=== PATIENT | male | born 1995 | race Caucasian/White ===

== ENCOUNTER → 2019-06-16 11:37 | Outpatient (BNVA) | payer BC, OTHER, SELFPAY | PROVIDERS: Family Provider Family Medicine; PCP Family Medicine; Visit Provider Urology | DX: N99.89 Other postprocedural complications and disorders of genitourinary system (principal); C67.9 Malignant neoplasm of bladder, unspecified | CPT/HCPCS: 81001 ==

== ENCOUNTER → 2019-07-28 08:08 | Outpatient (BNVA) | payer BC, OTHER, SELFPAY | PROVIDERS: Family Provider Family Medicine; PCP Family Medicine; Visit Provider Urology | DX: C67.9 Malignant neoplasm of bladder, unspecified (principal) | CPT/HCPCS: 81001 ==

== ENCOUNTER → 2019-11-10 11:31 | Outpatient (BNVA) | payer BC, OTHER, SELFPAY | PROVIDERS: Family Provider Family Medicine; PCP Family Medicine; Visit Provider Urology | DX: C67.9 Malignant neoplasm of bladder, unspecified (principal) | CPT/HCPCS: 81001 ==

== ENCOUNTER → 2019-11-17 11:19 | Outpatient (BNVA) | payer BC, OTHER, SELFPAY | PROVIDERS: Family Provider Family Medicine; PCP Family Medicine; Visit Provider Urology | DX: C67.9 Malignant neoplasm of bladder, unspecified (principal) | CPT/HCPCS: 81001 ==

== ENCOUNTER → 2020-04-03 12:53 | Outpatient (BNVA) | payer BC, SELFPAY | PROVIDERS: Family Provider Family Medicine; PCP Family Medicine; Referring Provider Family Medicine; Visit Provider Internal Medicine | DX: E10.9 Type 1 diabetes mellitus without complications (principal); E78.2 Mixed hyperlipidemia | CPT/HCPCS: 99203 ==

== ENCOUNTER → 2020-05-17 11:44 | Outpatient (BNVA) | payer BC, SELFPAY | PROVIDERS: Family Provider Family Medicine; PCP Family Medicine; Visit Provider Urology | DX: C67.9 Malignant neoplasm of bladder, unspecified (principal) | CPT/HCPCS: 81003 ==

== ENCOUNTER → 2020-05-24 07:16 | Outpatient (BNVA) | payer BC, OTHER, SELFPAY | PROVIDERS: Family Provider Family Medicine; PCP Family Medicine; Visit Provider Urology | DX: C67.9 Malignant neoplasm of bladder, unspecified (principal) | CPT/HCPCS: 81003 ==

== ENCOUNTER → 2020-05-31 11:00 | Outpatient (BNVA) | payer BC, SELFPAY | PROVIDERS: Family Provider Family Medicine; PCP Family Medicine; Visit Provider Urology | DX: C67.9 Malignant neoplasm of bladder, unspecified (principal) | CPT/HCPCS: 81003 ==

== ENCOUNTER → 2020-07-01 08:06 | Outpatient (BNVA) | payer BC, SELFPAY | PROVIDERS: Family Provider Family Medicine; PCP Family Medicine; Visit Provider Internal Medicine | DX: E10.9 Type 1 diabetes mellitus without complications (principal); E16.0 Drug-induced hypoglycemia without coma; T38.3X5A Adverse effect of insulin and oral hypoglycemic [antidiabetic] drugs, initial encounter; E78.2 Mixed hyperlipidemia | CPT/HCPCS: 99215 ==

== ENCOUNTER → 2020-07-17 10:40 | Outpatient (BNVA) | payer BC, SELFPAY | PROVIDERS: Family Provider Family Medicine; PCP Family Medicine; Visit Provider Urology | DX: C67.9 Malignant neoplasm of bladder, unspecified (principal) | CPT/HCPCS: 81003 ==

== ENCOUNTER → 2020-08-30 11:37 | Outpatient (BNVA) | payer BC, SELFPAY | PROVIDERS: Family Provider Family Medicine; PCP Family Medicine; Visit Provider Urology | DX: C67.9 Malignant neoplasm of bladder, unspecified (principal) | CPT/HCPCS: 81003 ==

== ENCOUNTER → 2020-09-13 10:23 | Outpatient (BNVA) | payer BC, SELFPAY | PROVIDERS: Family Provider Family Medicine; PCP Family Medicine; Visit Provider Urology | DX: C67.9 Malignant neoplasm of bladder, unspecified (principal) | CPT/HCPCS: 81003 ==

== ENCOUNTER → 2020-09-20 11:12 | Outpatient (BNVA) | payer BC, SELFPAY | PROVIDERS: Family Provider Family Medicine; PCP Family Medicine; Visit Provider Urology | DX: C67.9 Malignant neoplasm of bladder, unspecified (principal) | CPT/HCPCS: 81003 ==

== ENCOUNTER 2020-09-24 14:26 | Outpatient (CLI) | payer BC, SELFPAY ==
[2020-09-24 14:55] LABS: Basophils % 0.3 %; Eosinophils # 0.2 10^3/uL (0.0-0.8); Eosinophils % 2.9 %; Hematocrit 47.3 % (42.0-52.0); Hemoglobin 15.6 g/dL (11.7-16.6); Lymphocytes # 1.7 10^3/uL (0.8-4.8); Mean Corpuscular Hemoglobin 30.5 pg (28.0-34.0); Mean Corpuscular Volume 92.6 fL (80-94); Mean Platelet Volume 10.7 fL (7.4-10.4); Monocytes # 0.7 10^3/uL (0.2-0.9); Monocytes % 11.4 %; Neutrophils # 3.49 10^3/uL (1.8-7.7); Neutrophils % 56.9 %; Nucleated Red Blood Cells % 0 %; Platelet Count 231 10^3/cmm (130-400); Red Blood Count 5.11 10^6/uL (4.1-5.3); Red Cell Distribution Width 12.3 % (12.1-15.1); White Blood Count 6.1 10^3/uL (4.0-10.0)
[2020-09-24 15:17] LABS: Alanine Aminotransferase 17 U/L (0-41); Albumin Level 4.4 g/dL (3.5-5.2); Alkaline Phosphatase 61 IU/L (40-130); Anion Gap 12.6 (5-19); Aspartate Amino Transferase 15 U/L (0-40); Blood Urea Nitrogen 9 mg/dL (6-20); Calcium 9.1 mg/dL (8.5-10.5); Carbon Dioxide 29 mmol/L (22-29); Chloride 99 mmol/L (98-107); Globulin 2.5 g/dL (1.3-4.6); Glomerular Filtration Rate 61.3 mL/min (90-130); Glucose 208 mg/dL (65-115); Osmolality Calculated 287 mOsm/kg (285-295); Potassium 4.6 mmol/L (3.5-5.1); Sodium 136 mmol/L (136-145); Total Bilirubin 0.8 mg/dL (0.15-1.2); Total Protein 6.9 g/dL (6.6-8.7)
== END 2020-09-24 14:27 | disposition home or self-care (01) ==
PROVIDERS: PCP Family Medicine; Visit Provider Urology
DX: C67.9 Malignant neoplasm of bladder, unspecified (principal)
CPT/HCPCS: 36415; 80053; 81003; 85025

== ENCOUNTER → 2020-09-25 07:34 | Outpatient (BNVA) | payer BC, SELFPAY | PROVIDERS: PCP Family Medicine; Visit Provider Urology | DX: C67.9 Malignant neoplasm of bladder, unspecified (principal); N30.80 Other cystitis without hematuria; T50.A95A Adverse effect of other bacterial vaccines, initial encounter | CPT/HCPCS: 81003 ==

== ENCOUNTER → 2020-09-30 13:14 | Outpatient (BNVA) | payer BC, MEDICAID, SELFPAY | PROVIDERS: PCP Family Medicine; Visit Provider Nurse Practitioner Family | DX: N39.9 Disorder of urinary system, unspecified (principal); N30.80 Other cystitis without hematuria; T50.A95A Adverse effect of other bacterial vaccines, initial encounter | CPT/HCPCS: 80053; 81003; 85025; 87086 ==

== ENCOUNTER → 2020-10-02 14:26 | Outpatient (BNVA) | payer BC, SELFPAY | PROVIDERS: PCP Family Medicine; Visit Provider Urology | DX: N30.80 Other cystitis without hematuria (principal) | CPT/HCPCS: 81003 ==

== ENCOUNTER → 2021-01-02 10:14 | Outpatient (BNVA) | payer BC, SELFPAY | PROVIDERS: PCP Family Medicine; Visit Provider Urology | DX: C67.9 Malignant neoplasm of bladder, unspecified (principal) | CPT/HCPCS: 81003 ==

== ENCOUNTER → 2021-07-07 15:23 | Outpatient (BNVA) | payer BC, OTHER, SELFPAY | PROVIDERS: PCP Family Medicine; Visit Provider Urology | DX: C67.9 Malignant neoplasm of bladder, unspecified (principal); E10.9 Type 1 diabetes mellitus without complications | CPT/HCPCS: 81003 ==

== ENCOUNTER → 2022-03-12 08:47 | Outpatient (BNVA) | payer OTHER, SELFPAY | PROVIDERS: PCP Family Medicine; Visit Provider Family Medicine | DX: E10.9 Type 1 diabetes mellitus without complications (principal); E78.5 Hyperlipidemia, unspecified; E16.0 Drug-induced hypoglycemia without coma; T38.3X5A Adverse effect of insulin and oral hypoglycemic [antidiabetic] drugs, initial encounter | CPT/HCPCS: 82043; 83036 ==

== ENCOUNTER 2022-05-04 09:32 | Emergency (ER) | payer OTHER, SELFPAY ==
[2022-05-04 09:39] VITALS: BP 131/89; PULSE 103; TEMP 36.6; O2SAT 98; BMI 23.7
--- NOTE | 2022-05-04 09:52 | ECG_ITS ---
[facility] Test Date: 2022-05-04 Pat Name: Angel Rinaldi Department: Room: Gender: Male In Flight Technician: : 1995 Requested By: Ted Garcia Order Number: [id number] Kelsea MD: Nghia Edward M.D. Measurements Intervals [place] Rate: 81 P: 83 NC: 155 QRS: 68 QRSD: 94 T: 71 QT: 350 QTc: 407 Interpretive Statements SINUS RHYTHM POSSIBLE RIGHT ATRIAL ENLARGEMENT [0.25mV P-WAVE] No previous ECG available for comparison Electronically Signed On 05-04-2022 17:07:51 AUDITOR INTERNAL by Nghia Edward M.D. [id number]
[2022-05-04] MEDS: promethazine 25 mg/mL SDV 1 mL IM (10:08)
[2022-05-04] MEDS: insulin regular-human 100 units/1 mL 10 UNIT IVP ×2 (10:09→13:46)
--- NOTE | 2022-05-04 10:09 | ED_ITS ---
HPI - Nausea/Vomiting/Diarrhea General: Chief complaint: Nausea/Vomiting/Diarrhea Stated complaint: high bloodsugar/n/v Time Seen by Provider: 05/04/22 09:46 Source: patient Mode of arrival: ambulatory History of Present Illness: 27-year-old male presents emergency room with nausea vomiting. Mr. Rinaldi is a known insulin-dependent diabetic he usually uses an insulin pump. His battery on his insulin pump went down overnight when he woke up this morning he was nauseous began vomiting he tested for ketones and it read high blood sugar in excess of 430. He usually has excellent control of his blood sugars and rarely is in the hospital for these issues. He recognized that he would not be able to manage this at home and came to the emergency room on arrival here he is awake and alert able to give an excellent history. He is still quite nauseous. He has had a little diarrhea recently but he has not had any fever sweats chills or upper respiratory-like symptoms. MD elicited complaint: nausea and vomiting Onset (ago): hour(s) Description of vomiting: watery and bilious Associated nausea: Yes Associated abdominal pain: No Location of pain: None Quality: cramping Exacerbating factors: none Relieving factors: none Context: other (Insulin pump malfunction) Associated symtoms: Reports anorexia, malaise, myalgias, nausea and weakness; Denies altered mental status, anxiety, bloating, change in vision, chest pain, cough, diaphoresis, decreased urine output, dizziness, dysuria, epistaxis, fatigue, fecal incontinence, fevers/chills, headache(s), numbness, palpitations, rash, short of breath, syncope, tenesmus or tinnitus Review of Systems Const: Reports: malaise; Denies: fever(s), chills, fatigue or diaphoresis Eyes: Denies: change in vision ENMT: Denies: tinnitus or epistaxis Card: Denies: chest pain, palpitations or syncope Resp: Denies: dyspnea, productive cough or non-productive cough GI: Reports: nausea; Denies: bloating or fecal incontinence : Denies: dysuria Skin/Breast: Denies: rash or pruritus Neuro: Denies: headache(s) or dizziness Psych: Denies: anxiety PFSH ED PFSH: Medical History History of epilepsy History of sarcoidosis Malignant neoplasm of bladder, unspecified Type 1 diabetes Surgical History H/O vasectomy S/P adenoidectomy S/P bladder tumor excision with fulguration S/P hernia repair S/P tonsillectomy Family History Mother Thyroid condition Social History Smoking and tobacco status: former smoker Alcohol intake: current Alcohol intake frequency: few times a month Adopted: No Caregiver/support person: No Lives independently: No Household members: spouse Marital status: Number of children: 3 Current occupational status: employed History of recent travel: No Physical Exam Const: COMMON NORMALS: no acute distress EXAM LIMITATIONS: no altered mental status GENERAL APPEARANCE: cooperative and comfortable ORIENTATION/CONSCIOUSNESS: Yes awake, Yes oriented to person, Yes oriented to place and Yes oriented to time HENMT: COMMON NORMALS: normocephalic, atraumatic and hearing grossly normal bilaterally HEAD & SCALP: normocephalic and atraumatic Resp: COMMON NORMALS: normal respiratory effort, No retractions, No use of accessory muscles and clear to auscultation bilaterally AUSCULTATION: clear to auscultation bilaterally Cardio: COMMON NORMALS: regular rate, regular rhythm and No murmurs present (Cardio) RATE: regular rate RHYTHM: regular rhythm GI: COMMON NORMALS: Soft to palpation and No hepatosplenomegaly present AUSCULTATION: Yes normoactive bowel sounds PALPATION: Yes Soft to palpation, No Tenderness to palpation present (GI), No Guarding due to palpation present (GI) and Yes No hepatosplenomegaly present Extremity: COMMON NORMALS: normal to inspection, capillary refill normal, no clubbing, cyanosis or edema, no calf tenderness and no pedal edema Neuro: SENSORIUM/ORIENTATION: Yes oriented to person, Yes oriented to place and Yes oriented to time Skin: COMMON NORMALS: no rashes or lesions noted GENERAL SKIN EXAM: no mirtha hes or lesions noted Course Vital Signs: Vital signs: Vital Signs Temperature 97.9 F 05/04/22 09:39 Pulse Rate 69 05/04/22 13:15 Respiratory Rate 18 05/04/22 13:15 Blood Pressure 114/54 05/04/22 13:15 Pulse Oximetry 96 05/04/22 13:15 Oxygen Delivery Me thod 05/04/22 13:15 MDM - Nausea/Vomiting/Diarrhea Medical Decision Making Patient initially presented with a insulin pump failure leading to severe hyperglycemia mild DKA. He is awake and alert he is not having a significant amount of vomiting in the emergency room. He was given fluid and insulin once his insulin had begun to improve his insulin pump was restarted we were able to document resolution of his ketones as well as closure of his anion gap he is feeling much better he demonstrated the ability to eat and drink we will go ahead and discharge the patient home. Patient had little to no change in his potassium on the repeat BMP so did not require any potassium supplementation. Given this was an identifiable equipment error I would expect fully expect he would be able to manage his blood sugars in the same level that he was previously without any difficulty after discharge patient felt same and wished to go home. Medical Records I reviewed the patient's medical records. Lab Data I reviewed the patient's lab results. 05/04/22 10:03 05/04/22 10:03 Laboratory Results WBC 8.3 10^3/uL (4.0-10.0) 05/04/22 10:03 RBC 5.77 10^6/uL (4.1-5.3) H 05/04/22 10:03 Hgb 18.2 g/dL (11.7-16.6) H 05/04/22 10:03 Hct 53.2 % (42.0-52.0) H 05/04/22 10:03 MCV 92.2 fl (80-94) 05/04/22 10:03 MCH 31.5 pg (28.0-34.0) 05/04/22 10:03 MCHC 34.2 g/dL (30.0-36.0) 05/04/22 10:03 RDW 11.7 % (12.1-15.1) L 05/04/22 10:03 Plt Count 220 10^3/cmm (130-400) 05/04/22 10:03 MPV 10.8 fL (7.4-10.4) H 05/04/22 10:03 Neut % (Auto) 84.9 % 05/04/22 10:03 Lymph % (Auto) 9.4 % 05/04/22 10:03 [place] % (Auto) 4.3 % 05/04/22 10:03 Eos % (Auto) 0.4 % 05/04/22 10:03 Baso % (Auto) 0.4 % 05/04/22 10:03 Neut # (Auto) 7.05 10^3/uL (1.8-7.7) 05/04/22 10:03 Lymph # (Auto) 0.8 10^3/uL (0.8-4.8) 05/04/22 10:03 [place] # (Auto) 0.4 10^3/uL (0.2-0.9) 05/04/22 10:03 Eos # (Auto) 0.0 10^3/uL (0.0-0.8) 05/04/22 10:03 Baso # (Auto) 0.0 10^3/uL (0.0-0.1) 05/04/22 10:03 Nucleated RBC % (auto) 0 % 05/04/22 10:03 Nucleated RBCs # 0.0 /100WBC 05/04/22 10:03 Specimen Type Arterial 05/04/22 10:45 Sample Site Brachial, left 05/04/22 10:45 ABG pH 7.30 (7.35-7.45) L 05/04/22 10:45 ABG pCO2 36.8 mmHg (35-45) 05/04/22 10:45 ABG pO2 98.8 mmHg (80.0-100.0) 05/04/22 10:45 ABG HCO3 18.1 mmol/L (22-26) L 05/04/22 10:45 ABG O2 Saturation 98.2 05/04/22 10:45 ABG Base Excess -7.5 mmol/L (-2.0-2.0) L 05/04/22 10:45 Petros Test Pos 05/04/22 10:45 A-a O2 Gradient 0.8 mmHg (5-10) L 05/04/22 10:45 Hematocrit 50.5 % (42-52) 05/04/22 10:45 Hgb O2 Saturation 95.8 % (95-100) 05/04/22 10:45 Carboxyhemoglobin 1.5 %THgb (0.4-20.1) 05/04/22 10:45 Methemoglobin 0.9 % (0.4-1.5) 05/04/22 10:45 Total Hemoglobin 16.5 g/dL (14-18) 05/04/22 10:45 Sodium 139.0 mmol/L (131-143) 05/04/22 10:45 Potassium 3.5 mmol/L (3.5-5.0) 05/04/22 10:45 Glucose 247.0 mg/dL (70-115) H 05/04/22 10:45 Ionized Calcium 1.3 mmol/L (1.1-1.4) 05/04/22 10:45 O2 Delivery Device Room air 05/04/22 10:45 FiO2 21.0 % 05/04/22 10:45 System Configuration Specialist ID Cak 05/04/22 10:45 Sodium 142 mmol/L (136-145) 05/04/22 12:26 Potassium 4.3 mmol/L (3.5-5.1) 05/04/22 12:26 Chloride 106 mmol/L (98-107) 05/04/22 12:26 Carbon Dioxide 20 mmol/L (22-29) L 05/04/22 12:26 Anion Gap 20.3 (5-19) H 05/04/22 12:26 BUN 21 mg/dL (6-20) H 05/04/22 12:26 Creatinine 0.9 mg/dL (0.7-1.2) 05/04/22 12:26 GFR Calculation 100.5 mL/min (90-130) 05/04/22 12:26 Glucose 179 mg/dL (65-115) H 05/04/22 12:26 POC Glucose 122 mg/dL (70-110) H 05/04/22 15:13 Calculated Osmolality 301 mOsm/kg (285-295) H 05/04/22 12:26 Calcium 8.3 mg/dL (8.5-10.5) L 05/04/22 12:26 Total Bilirubin 1.1 mg/dL (0.15-1.2) 05/04/22 10:03 AST 45 U/L (0-40) H 05/04/22 10:03 ALT 39 U/L (0-41) 05/04/22 10:03 Alkaline Phosphatase 114 U/L (40-130) 05/04/22 10:03 Total Protein 8.0 g/dL (6.6-8.7) 05/04/22 10:03 Albumin 4.4 g/dL (3.5-5.2) 05/04/22 10:03 Globulin 3.6 g/dL (1.3-4.6) 05/04/22 10:03 Serum Ketones Negative (Negative) 05/04/22 14:11 Discharge Plan Discharge Patient Disposition: Home Clinical Impression: Acute hyperglycemia, Type 1 diabetes Condition: Stable Prescriptions: No Action BCG live 50 mg suspension for reconstitution 50 mg intravesical ONCE Qty: 0.5 0RF BCG vaccine, live (PF) 50 mg suspension for reconstitution 50 mg percutaneous ONCE Qty: 0.5 0RF (DME) subcutaneous insulin pump Misc See Rx Instructions .ROUTE .MEDSUPPLY Qty: 1 Rx Instructions: As directed BCG vaccine, live (PF) 50 mg suspension for reconstitution 1 ml PERCUTANEO ONCE Qty: 1 0RF insulin aspart U-100 [Novolog U-100 Insulin aspart] 100 unit/mL solution See Rx Instructions .ROUTE .COMPLEX Qty: 140 1RF Dose Instruction: inject 150 units SUBCUTANEOUSLY EVERY DAY Rx Instructions: inject 150 units SUBCUTANEOUSLY EVERY DAY Discharge Orders: Discharge ED (Routine); Ordered 05/04/22 Ordered By: Ted Singh Referrals: Bowen Dill MD [Primary Care Provider] - Patient Instructions: Opioid Safety, Pain Management Activity Restrictions/Additional Instructions: Arrival emergency room you are hyperglycemic with positive ketones in the blood after significant mount of fluid and treatment insulin your blood sugar has normalized your ketones and electrolyte abnormalities have resolved. Discharge home continue routine diabetic management. Since this episode was caused by a battery issue with your insulin pump anticipate you should be able to resume your normal diabetic cares without difficulty and manage blood sugar with similar success as you have had in the past. Coding Level of Care Code ED Laboratory Secretary for Chg Fwd Exam Detailed
[2022-05-04] MEDS: sodium chloride 0.9% 1,000 ML 999 ML IV ×5 (10:10→13:44)
[2022-05-04 10:12] LABS: Basophils % 0.4 %; Eosinophils % 0.4 %; Hematocrit 53.2 % (42.0-52.0); Hemoglobin 18.2 g/dL (11.7-16.6); Lymphocytes # 0.8 10^3/uL (0.8-4.8); Lymphocytes % 9.4 %; Mean Corpuscular HGB Conc 34.2 g/dL (30.0-36.0); Mean Corpuscular Hemoglobin 31.5 pg (28.0-34.0); Mean Corpuscular Volume 92.2 fl (80-94); Mean Platelet Volume 10.8 fL (7.4-10.4); Monocytes # 0.4 10^3/uL (0.2-0.9); Monocytes % 4.3 %; Neutrophils # 7.05 10^3/uL (1.8-7.7); Neutrophils % 84.9 %; Nucleated Red Blood Cells % 0 %; Platelet Count 220 10^3/cmm (130-400); Red Blood Count 5.77 10^6/uL (4.1-5.3); Red Cell Distribution Width 11.7 % (12.1-15.1); White Blood Count 8.3 10^3/uL (4.0-10.0)
[2022-05-04 10:34] LABS: Alanine Aminotransferase 39 U/L (0-41); Albumin Level 4.4 g/dL (3.5-5.2); Alkaline Phosphatase 114 U/L (40-130); Anion Gap 30.4 (5-19); Aspartate Amino Transferase 45 U/L (0-40); Blood Urea Nitrogen 23 mg/dL (6-20); Calcium 10.1 mg/dL (8.5-10.5); Carbon Dioxide 18 mmol/L (22-29); Chloride 93 mmol/L (98-107); Globulin 3.6 g/dL (1.3-4.6); Glomerular Filtration Rate 79.7 mL/min (90-130); Glucose 418 mg/dL (65-115); Osmolality Calculated 305 mOsm/kg (285-295); Potassium 4.4 mmol/L (3.5-5.1); Sodium 137 mmol/L (136-145); Total Bilirubin 1.1 mg/dL (0.15-1.2)
[2022-05-04 10:35] LABS: Ketone (Acetest) Serum Positive (Negative)
[2022-05-04 10:56] LABS: ABG PCO2 36.8 mmHg (35-45); Alveolar-Arterial Oxygen Gradi 0.8 mmHg (5-10); Arterial Blood Gas Hematocrit 50.5 % (42-52); Base Excess ABG -7.5 mmol/L (-2.0-2.0); Blood Gas Allen Test Pos; Blood Gas Operator Identificat CAK; Blood Gas Sample Site Brachial, left; Blood Gas Sample Type Arterial; Carboxyhemoglobin 1.5 %THgb (0.4-20.1); HCO3 ABG 18.1 mmol/L (22-26); HGB O2 Sat 95.8 % (95-100); Ionized Calcium Level - ABG 1.3 mmol/L (1.1-1.4); Methemoglobin 0.9 % (0.4-1.5); Oxygen Device ROOM AIR; Oxygen Saturation ABG 98.2; PO2 ABG 98.8 mmHg (80.0-100.0); Potassium Level - ABG 3.5 mmol/L (3.5-5.0); Total Hemoglobin 16.5 g/dL (14-18)
[2022-05-04 11:00] VITALS: PULSE 88; O2SAT 98
[2022-05-04 11:07] LABS: Glucose Point of Care 220 mg/dL (70-110)
[2022-05-04 11:45] VITALS: BP 99/55; PULSE 76; O2SAT 98
[2022-05-04 12:40] LABS: Ketone (Acetest) Serum Positive (Negative)
[2022-05-04 12:49] LABS: Anion Gap 20.3 (5-19); Blood Urea Nitrogen 21 mg/dL (6-20); Calcium 8.3 mg/dL (8.5-10.5); Carbon Dioxide 20 mmol/L (22-29); Chloride 106 mmol/L (98-107); Glomerular Filtration Rate 100.5 mL/min (90-130); Glucose 179 mg/dL (65-115); Osmolality Calculated 301 mOsm/kg (285-295); Potassium 4.3 mmol/L (3.5-5.1); Sodium 142 mmol/L (136-145)
[2022-05-04 13:15] VITALS: BP 114/54; PULSE 69; RESP 18; O2SAT 96
[2022-05-04 14:10] LABS: Glucose Point of Care 127 mg/dL (70-110)
[2022-05-04 14:30] LABS: Ketone (Acetest) Serum Negative (Negative)
[2022-05-04 15:18] LABS: Glucose Point of Care 122 mg/dL (70-110)
== END 2022-05-04 15:30 | disposition home or self-care (01) ==
PROVIDERS: Emergency Provider Family Medicine; PCP Family Medicine
DX: E10.65 Type 1 diabetes mellitus with hyperglycemia (principal); Z79.4 Long term (current) use of insulin; Z96.41 Presence of insulin pump (external) (internal); Z85.51 Personal history of malignant neoplasm of bladder; Z87.891 Personal history of nicotine dependence
CPT/HCPCS: 36416; 36600; 80048; 80051; 80053; 82009; 82330; 82805; 82962; 85025; 93005; 96361; 96372; 96374; 96376; 99285; J1815; J2550; J7030

== ENCOUNTER → 2022-07-22 15:45 | Outpatient (BNVA) | payer OTHER, SELFPAY | PROVIDERS: PCP Family Medicine; Visit Provider Urology | DX: N30.80 Other cystitis without hematuria (principal); T50.A95A Adverse effect of other bacterial vaccines, initial encounter; C67.9 Malignant neoplasm of bladder, unspecified; X58.XXXA Exposure to other specified factors, initial encounter | CPT/HCPCS: 52000; 81003 ==

== ENCOUNTER → 2022-12-07 11:48 | Outpatient (BNVA) | payer OTHER, SELFPAY | PROVIDERS: PCP Family Medicine; Visit Provider Urology | DX: C67.9 Malignant neoplasm of bladder, unspecified (principal) | CPT/HCPCS: 81003 ==

== ENCOUNTER → 2023-10-01 08:45 | Outpatient (BNVA) | payer OTHER, SELFPAY | PROVIDERS: PCP Family Medicine; Visit Provider Family Medicine | DX: Z13.220 Encounter for screening for lipoid disorders (principal); Z51.81 Encounter for therapeutic drug level monitoring; E11.9 Type 2 diabetes mellitus without complications; R53.81 Other malaise; N30.80 Other cystitis without hematuria; T50.A95A Adverse effect of other bacterial vaccines, initial encounter | CPT/HCPCS: 80053; 80061; 83036; 84403; 84439; 84443; 85025 ==

== ENCOUNTER 2024-05-29 19:34 | Emergency (ER) | payer OTHER, SELFPAY ==
[2024-05-29 19:38] VITALS: BP 152/95; PULSE 117; RESP 18; TEMP 38.1; O2SAT 96
--- NOTE | 2024-05-29 20:58 | ED_ITS ---
HPI - Wound/Laceration 2 General: Chief Complaint: Wound/Laceration Stated Complaint: Possible Infection From Insulin Pump Time Seen by Provider: 05/29/24 20:46 Source: patient Mode of arrival: ambulatory Limitations: no limitations History of Present Illness: 29-year-old male has a history of type 1 diabetes he states he had his insulin pump on his right buttocks he is changes position but he states he has developed an abscess to his right buttocks. He had some erythema low-grade fevers at home he had some pain at the site he rates a 3 out of 10 denies any other issues. States his blood sugars have been running normal. Associated symptoms: Denies chills, fever(s), nausea or vomiting Related Data Home Medications Medication Instructions Recorded Confirmed subcutaneous insulin pump #1 ea 06/16/19 01/27/24 Previous Rx's Medication Instructions Recorded insulin glargine 100 unit/mL (3 35 unit (0.35 mL) SUBCUT DAILY 60 03/16/23 mL) subcutaneous pen (Lantus days #27 mL Solostar U-100 Insulin) buspirone 5 mg tablet 5 mg PO TID #90 tabs 07/23/23 insulin aspart U-100 100 unit/mL See Rx Instructions .Route 11/16/23 subcutaneous solution (Novolog .COMPLEX #140 mL U-100 Insulin aspart) citalopram 10 mg tablet 10 mg PO DAILY #30 tabs 03/07/24 clindamycin HCl 300 mg capsule 300 mg PO Q8H 7 days #21 caps 05/29/24 Allergies Allergy/AdvReac Type Severity Reaction Status Date / Time amoxicillin Allergy NA Verified 05/29/24 19:37 Penicillins Allergy NA Verified 05/29/24 19:37 Sulfa (Sulfonamide Allergy NA Verified 05/29/24 19:37 Antibiotics) Review of Systems 2 Const: Denies: fever(s), chills, body aches or change in appetite ENMT: Denies: throat pain or dental pain Card: Denies: chest pain Resp: Denies: dyspnea GI: Denies: abdominal pain, nausea, vomiting or diarrhea Musc: Denies: neck pain or back pain Skin/Breast: Reports: erythema; Denies: rash Neuro: Denies: headache(s) PFSH ED 2 PFSH: Medical History History of epilepsy History of sarcoidosis Type 1 diabetes Malignant neoplasm of bladder, unspecified Seeing Dr Rodrigues in [facility] and oncology in [facility] Surgical History H/O vasectomy S/P adenoidectomy S/P tonsillectomy S/P hernia repair S/P bladder tumor excision with fulguration Family History Mother Thyroid disease Grandfather Colon cancer, Onset Age: 79 Social History Smoking and tobacco/nicotine status: never used tobacco/nicotine Alcohol intake: current Alcohol intake frequency: few times a month Substance/Drug Use: never Adopted: No Caregiver/support person: No Lives independently: No Household members: spouse Marital status: Number of children: 3 Current occupational status: employed Current occupation: [employer] Physical Exam 2 Const: COMMON NORMALS: no acute distress, patient oriented x3 and healthy appearing HENMT: COMMON NORMALS: normocephalic and atraumatic HEAD & SCALP: n ormocephalic and atraumatic Neck/C-Spine: COMMON NORMALS: full ROM and supple Chest: COMMONS NORMALS: normal inspection of the chest Resp: COMMON NORMALS: normal respiratory effort Cardio: COMMON NORMALS: regular rate RATE: regular rate Extremity: COMMON NORMALS: normal to inspection and full ROM Neuro: COMMON NORMALS: patient oriented x3, moves all extremities and no focal motor deficits Psych: COMMON NORMALS: mental status grossly normal, Normal thought process present and cooperative THOUGHT PROCESS: Normal thought process present Skin: NARRATIVE SKIN EXAM: Abscess noted to right buttocks Procedures Abscess I/D Site: other (buttocks) Side (if applicable): right Local Anesthetic: lidocaine 1% Amount of anesthesia used (mL): 10 Technique: incised with #11 blade Irrigation: No Packing used?: none Course 2 Vital Signs: Vital signs: Vital Signs Temperature 100.6 F H 05/29/24 19:38 Pulse Rate 117 H 05/29/24 19:38 Respiratory Rate 18 05/29/24 19:38 Blood Pressure 152/95 05/29/24 19:38 Pulse Oximetry 96 05/29/24 19:38 Oxygen Delivery Me thod Room Air 05/29/24 19:38 MDM - Wound/Laceration Medical Decision Making Patient presents for an abscess to his right buttocks did incise and drain it did give a dose of vancomycin here we will place him on Bactrim did do wound cultures he is stable for discharge no signs of any severe cellulitis he is return if worsening he understands agrees to plan Medical Records I reviewed the patient's medical records. Lab Data I reviewed the patient's lab results. 05/29/24 21:07 05/29/24 21:07 Laboratory Results WBC 15.78 10^3/uL (3.29-11.43) H 05/29/24 21:07 RBC 4.94 10^6/uL (3.85-5.65) 05/29/24 21:07 Hgb 15.60 g/dL (11.27-16.99) 05/29/24 21:07 Hct 45.1 % (37-53) 05/29/24 21:07 MCV 91.3 fl (82-101) 05/29/24 21:07 MCH 31.6 pg (27-33) 05/29/24 21:07 MCHC 34.6 g/dL (30-55) 05/29/24 21:07 RDW 12.0 % (12.1-15.1) L 05/29/24 21:07 Plt Count 260 10^3/cmm (157-399) 05/29/24 21:07 MPV 10.5 fL (7.4-10.4) H 05/29/24 21:07 Neut % (Auto) 79.1 % 05/29/24 21:07 Lymph % (Auto) 9.8 % 05/29/24 21:07 [place] % (Auto) 9.7 % 05/29/24 21:07 Eos % (Auto) 0.8 % 05/29/24 21:07 Baso % (Auto) 0.3 % 05/29/24 21:07 Neut # (Auto) 12.49 10^3/uL (1.8-7.7) H 05/29/24 21:07 Lymph # (Auto) 1.5 10^3/uL (0.8-4.8) 05/29/24 21:07 [place] # (Auto) 1.5 10^3/uL (0.2-0.9) H 05/29/24 21:07 Eos # (Auto) 0.1 10^3/uL (0.0-0.8) 05/29/24 21:07 Baso # (Auto) 0.0 10^3/uL (0.0-0.1) 05/29/24 21:07 Nucleated RBC % (auto) 0 % 05/29/24 21:07 Nucleated RBCs # 0.0 /100WBC 05/29/24 21:07 Sodium 138 mmol/L (136-145) 05/29/24 21:07 Potassium 3.6 mmol/L (3.5-5.1) 05/29/24 21:07 Chloride 100 mmol/L (98-107) 05/29/24 21:07 Carbon Dioxide 27 mmol/L (22-29) 05/29/24 21:07 Anion Gap 14.6 (5-19) 05/29/24 21:07 BUN 10 mg/dL (6-20) 05/29/24 21:07 Creatinine 1.0 mg/dL (0.7-1.2) 05/29/24 21:07 GFR Calculation 87.7 mL/min (90-130) L 05/29/24 21:07 Glucose 70 mg/dL (65-115) 05/29/24 21:07 Calculated Osmolality 283 mOsm/kg (285-295) L 05/29/24 21:07 Calcium 9.4 mg/dL (8.5-10.5) 05/29/24 21:07 Total Bilirubin 0.8 mg/dL (0.15-1.2) 05/29/24 21:07 AST 20 U/L (0-40) 05/29/24 21:07 ALT 15 U/L (0-41) 05/29/24 21:07 Alkaline Phosphatase 81 U/L (40-130) 05/29/24 21:07 Total Protein 7.1 g/dL (6.6-8.7) 05/29/24 21:07 Albumin 4.2 g/dL (3.5-5.2) 05/29/24 21:07 Globulin 2.9 g/dL (1.3-4.6) 05/29/24 21:07 No radiology studies performed this visit Discharge Plan Discharge Patient Disposition: Home Clinical Impression: Abscess Condition: Stable Prescriptions: New clindamycin HCl 300 mg capsule 300 mg PO Q8H 7 Days Qty: 21 0RF No Action BCG live 50 mg suspension for reconstitution 50 mg intravesical ONCE Qty: 0.5 0RF BCG vaccine, live (PF) 50 mg suspension for reconstitution 50 mg percutaneous ONCE Qty: 0.5 0RF (DME) subcutaneous insulin pump Misc See Rx Instructions .ROUTE .MEDSUPPLY Qty: 1 Rx Instructions: As directed BCG vaccine, live (PF) 50 mg suspension for reconstitution 1 ml PERCUTANEO ONCE Qty: 1 0RF insulin glargine [Lantus Solostar U-100 Insulin] 100 unit/mL (3 mL) insulin pen 35 unit SUBCUT DAILY 60 Days Qty: 27 0RF buspirone 5 mg tablet 5 mg PO TID Qty: 90 3RF insulin aspart U-100 [Novolog U-100 Insulin aspart] 100 unit/mL solution See Rx Instructions .ROUTE .COMPLEX Qty: 140 1RF Dose Instruction: INJECT 150 UNITS SUBCUTANEOUSLY EVERY DAY Rx Instructions: INJECT 150 UNITS SUBCUTANEOUSLY EVERY DAY citalopram 10 mg tablet 10 mg PO DAILY Qty: 30 6RF Discharge Orders: Discharge ED (Routine); Ordered 05/29/24 Ordered By: Yasmani Carbone Referrals: Bowen Dill MD [Primary Care Provider] - 4-7 days Discharge Diet: Advance as tolerated Discharge Activity: Resume usual activity Patient Instructions: Abscess (ED) Coding Level of Care Code ED Managed Care Manager for Bing Landaverde
[2024-05-29] MEDS: acetaminophen 325 mg Tablet 650 MG PO (21:14)
[2024-05-29 21:32] LABS: Basophils % 0.3 %; Eosinophils # 0.1 10^3/uL (0.0-0.8); Eosinophils % 0.8 %; Hematocrit 45.1 % (37-53); Lymphocytes # 1.5 10^3/uL (0.8-4.8); Lymphocytes % 9.8 %; Mean Corpuscular HGB Conc 34.6 g/dL (30-55); Mean Corpuscular Hemoglobin 31.6 pg (27-33); Mean Corpuscular Volume 91.3 fl (82-101); Mean Platelet Volume 10.5 fL (7.4-10.4); Monocytes # 1.5 10^3/uL (0.2-0.9); Monocytes % 9.7 %; Neutrophils # 12.49 10^3/uL (1.8-7.7); Neutrophils % 79.1 %; Nucleated Red Blood Cells % 0 %; Platelet Count 260 10^3/cmm (157-399); Red Blood Count 4.94 10^6/uL (3.85-5.65); White Blood Count 15.78 10^3/uL (3.29-11.43)
[2024-05-29 21:45] VITALS: BP 121/74; PULSE 84; RESP 18; TEMP 38.6; O2SAT 97
[2024-05-29] MEDS: VANCOMYCIN ADD-Vantage 1,000 MG in 0.9% NaCl ADD-Vantage 250 ML 250 MG IV (21:45)
[2024-05-29 21:50] LABS: Alanine Aminotransferase 15 U/L (0-41); Albumin Level 4.2 g/dL (3.5-5.2); Alkaline Phosphatase 81 U/L (40-130); Anion Gap 14.6 (5-19); Aspartate Amino Transferase 20 U/L (0-40); Blood Urea Nitrogen 10 mg/dL (6-20); Calcium 9.4 mg/dL (8.5-10.5); Carbon Dioxide 27 mmol/L (22-29); Chloride 100 mmol/L (98-107); Creatinine Clr Calc Pharmacy 124.0776; Globulin 2.9 g/dL (1.3-4.6); Glomerular Filtration Rate 87.7 mL/min (90-130); Glucose 70 mg/dL (65-115); Osmolality Calculated 283 mOsm/kg (285-295); Potassium 3.6 mmol/L (3.5-5.1); Sodium 138 mmol/L (136-145); Total Bilirubin 0.8 mg/dL (0.15-1.2); Total Protein 7.1 g/dL (6.6-8.7)
[2024-05-29] MEDS: lidocaine 1% 10 ML INJ 20 ML SUBCUT (22:06)
[2024-05-30 01:24] VITALS: BP 114/65; PULSE 80; TEMP 36.9; O2SAT 96
== END 2024-05-29 23:05 | disposition home or self-care (01) ==
PROVIDERS: Emergency Provider Emergency Medicine; PCP Family Medicine
DX: L02.31 Cutaneous abscess of buttock (principal); Z79.4 Long term (current) use of insulin; E11.9 Type 2 diabetes mellitus without complications; C67.9 Malignant neoplasm of bladder, unspecified
CPT/HCPCS: 10060; 36415; 80053; 85025; 87070; 87186; 96374; 99284; J3370; J7050